=== PATIENT | female | born 1940 | race Asian ===

== ENCOUNTER 2021-06-27 13:39 | Emergency (ER) | payer BC, MEDICARE ==
[~2021-06-27] VITALS: Ht 157.5 cm; Wt 40.9 kg
[2021-06-27] MEDS ORDERED: acetaminophen 325mg tablet PO ONE (15:05)
[2021-06-27 15:17] LABS: BASOPHILS % (AUTO) 0 % (0-1); EOSINOPHILS % (AUTO) 0 % (0-6); HEMATOCRIT 37.3 % (35.0-45.0); HEMOGLOBIN 11.8 g/dl (12.0-16.0); LYMPHOCYTES % (AUTO) 0.7 % (21-51); MEAN CORPUSCULAR HEMOGLOBIN 28.9 PG (27.0-31.0); MEAN CORPUSCULAR HGB CONC 31.7 g/dL (33.0-36.5); MEAN CORPUSCULAR VOLUME 91.3 FL (78-98); MEAN PLATELET VOLUME 7.3 FL (7.4-10.4); MONOCYTES % (AUTO) 0.6 % (2-12); NEUTROPHILS # (AUTO) 6.9 X10'3 (1.8-7.7); NEUTROPHILS % (AUTO) 98.7 % (42-75); PLATELET COUNT 202 X10'3 (140-440); RED BLOOD COUNT 4.09 X10'6 (4.20-5.60); RED CELL DISTRIBUTION WIDTH 13.8 % (11.5-14.5)
[2021-06-27 15:40] LABS: ALANINE AMINOTRANSFERASE 29 U/L (12-78); ALBUMIN 2.9 G/DL (3.4-5.0); ALBUMIN/GLOBULIN RATIO 0.7 (1.1-1.5); ALKALINE PHOSPHATASE 75 IU/L (46-116); ANION GAP 14 (8-16); ASPARTATE AMINO TRANSFERASE 39 U/L (10-37); BILIRUBIN,TOTAL 0.5 MG/DL (0.1-1.0); BLOOD UREA NITROGEN 23 MG/DL (7-18); BUN/CREATININE RATIO 13.5 (6.6-38.0); CALCIUM 8.2 MG/DL (8.5-10.1); CHLORIDE 110 MMOL/L (99-107); CREATININE 1.71 MG/DL (0.40-0.90); GLUCOSE 113 MG/DL (70-104); POTASSIUM 4.2 MMOL/L (3.5-5.1); SODIUM 146 MMOL/L (135-145); TOTAL CARBON DIOXIDE 22.1 MMOL/L (24-32); TOTAL PROTEIN 6.8 G/DL (6.4-8.2); eGFR 29 ML/MIN
[2021-06-27 15:47] LABS: D-DIMER 6.73 MG/L FEU (0-0.50)
[2021-06-27 16:10] LABS: C-REACTIVE PROTEIN 1.57 MG/DL (0.0-0.5)
[2021-06-27] MEDS ORDERED: normal saline 1000ml 1,000 ML IV ONE ×2 (16:20→19:35)
[2021-06-27] MEDS ORDERED: CefTRIAXone/D5W-Rocephin 1gm 50 ML IV ONE (16:20)
[2021-06-27] MEDS ORDERED: iohexol 350MG/ML 100ml bottle IV ONE (17:19)
[2021-06-27 19:02] LABS: CLARITY,URINE CLOUDY (Clear); COLOR,URINE YELLOW (Yellow); GLUCOSE, URINE NEGATIVE (Neg); KETONES,URINE NEGATIVE (Neg); LEUKOCYTE ESTERASE ,URINE MODERATE (Neg); NITRITES, URINE NEGATIVE (Neg); OCCULT BLOOD,URINE LARGE (Neg); PROTEIN,URINE 100 mg/dl (Neg); UA COLLECTION TYPE STRAIGHT CATH; UROBILINOGEN,URINE 0.2 E.U/dL (0.2-1.0)
[2021-06-27 19:29] LABS: BACTERIA,URINE 3+ /HPF (Neg); HYALINE CASTS 0-3 /LPF (NEGATIVE); RBC,URINE 20-50 /HPF (0-2); SQUAMOUS EPITHELIAL CELL,UR FEW /LPF (FEW); WBC,URINE 30-50 /HPF (0-4)
[2021-06-27] MEDS ORDERED: NO HOME MEDS (20:01)
[2021-06-27] MEDS ORDERED: CIPR-259 PO (20:28)
[2021-06-27 21:55] VITALS: BP 110/70
--- NOTE | 2021-07-03 09:12 | NUR ---
Called patient and left a voicemail message to return call. Patient is to be called back and if any symptoms (fevers, chills, myalgia, etc) need to return to ER for further evaluation and work up per Dr. Beltre.
--- NOTE | 2021-07-05 10:00 | NUR ---
Attempted to contact patient today at [phone], voicemail was left. Patient called back at [phone]. Patient stated that she was no longer having diarrhea, fever, chills. Patient did state that she was still feeling not completely herself. But stated that she wanted to wait a few more days to see if she would continue to feel better. I stated to patient that when or if she felt she needed to be seen she could return to ER. Patient verbalized understanding and all questions answered prior to getting off the phone.
== END 2021-06-27 21:57 | disposition home or self-care (01) ==
LOC: ER 13:39
DX: N39.0 Urinary tract infection, site not specified (principal); Z20.822 Contact with and (suspected) exposure to COVID-19; R19.7 Diarrhea, unspecified; R06.02 Shortness of breath; Z79.2 Long term (current) use of antibiotics
CPT/HCPCS: 36415; 71045; 71275; 80053; 81001; 83605; 83735; 84145; 85025; 85379; 86140; 87040; 87077; 87088; 87186; 87635; 93005; 96365; 96366; 99285; C9803; J0696; J7030; Q9967